=== PATIENT | male | born 1965 | race Caucasian/White ===

== ENCOUNTER 2020-05-30 10:21 | Emergency (ER) | payer OTHER ==
[~2020-05-30] VITALS: Ht 185.4 cm; Wt 96.2 kg
[2020-05-30] MEDS ORDERED: INVOKAMET 150-1 EACH PO (10:29)
[2020-05-30] MEDS ORDERED: DIOVAN320 MG PO (10:29)
== END 2020-05-30 13:00 | disposition home or self-care (01) ==
LOC: ER 10:21
DX: S90.02XA Contusion of left ankle, initial encounter (principal); S90.112A Contusion of left great toe without damage to nail, initial encounter; W18.09XA Striking against other object with subsequent fall, initial encounter; Y93.89 Activity, other specified; Y92.098 Other place in other non-institutional residence as the place of occurrence of the external cause; Y99.8 Other external cause status

== ENCOUNTER 2020-06-22 23:19 | Emergency (ER) | payer OTHER ==
[~2020-06-22] VITALS: Ht 185.4 cm; Wt 97.5 kg
[~2020-06-22 23:19] MED LIST: DIOVAN320 MG PO; INVOKAMET 150-1 EACH PO
== END 2020-06-23 04:04 ==
LOC: ER 23:19
DX: G45.8 Other transient cerebral ischemic attacks and related syndromes (principal); Z20.828 Contact with and (suspected) exposure to other viral communicable diseases